=== PATIENT | female | born 1975 | race Caucasian/White ===

== ENCOUNTER → 2019-06-11 | Outpatient (CLI) | payer OTHER ==
[~2019-06-11] MED LIST: IBU-6600 MG PO; PRENATAL VITAMI1 TAB PO; PTU; SENOKOT S 50 MG1 TAB PO; SYNTHROID0.175 MG PO; TRANDATE 100MG100 MG PO; TRANDATE 200MG200 MG PO
== END ==
LOC: MC.RAD 04-23 09:15
DX: Z12.31 Encounter for screening mammogram for malignant neoplasm of breast (principal)

== ENCOUNTER → 2021-12-01 | Outpatient (CLI) | payer OTHER | LOC: MC.RAD 09:26 | DX: Z12.31 Encounter for screening mammogram for malignant neoplasm of breast (principal) ==

== ENCOUNTER → 2023-06-07 | Outpatient (CLI) | payer BC | LOC: MC.RAD 09:21 | DX: Z12.31 Encounter for screening mammogram for malignant neoplasm of breast (principal) ==